=== PATIENT | male | born 1940 | race Caucasian/White ===

== ENCOUNTER 2020-04-23 10:06 | Emergency (ER) | payer MEDICARE, SELFPAY ==
[2020-04-23 10:24] VITALS: BP 142/64; PULSE 80; RESP 16; TEMP 36.9; O2SAT 97; BMI 29.3
--- NOTE | 2020-04-23 10:33 | DI.RAD.S_ITS ---
PROCEDURE: XR TOE LT MIN 2V INDICATIONS: sent for osteomyelitis of toe TECHNIQUE: 3 views of the left 2nd toe(s) acquired. COMPARISON: None. FINDINGS: Bones: Soft tissue swelling of the left 2nd toe without underlying osseous destruction or cortical erosions. No acute fractures or dislocations. No suspicious bony lesions. Soft tissues: No suspicious soft tissue densities. No radiopaque soft tissue densities. IMPRESSION: Soft tissue swelling of the left 2nd toe without underlying osseous erosions or cortical destruction. No radiographic findings of osteomyelitis. Dictated by: Angelo Skelton M.D. on 04/23/2020 at 10:55 Approved by: Angelo Skelton M.D. on 04/23/2020 at 10:57
--- NOTE | 2020-04-23 10:36 | ED_ITS ---
HPI - Extremity Injury (Lower) General Chief Complaint: Extremity Injury, Lower Stated Complaint: OSTEOMYELITIS IN 3RD TOE ON LEFT FOOT Time Seen by Provider: 04/23/20 10:15 Source: patient and family Mode of arrival: Ambulatory Limitations: no limitations History of Present Illness HPI Narrative: 80-year-old male nonsmoker with history of diabetes presents with his at the request of his primary care provider for the presumed diagnosis of osteomyelitis of his 2nd toe on his left foot. He had been seen by his provider and after performing exam and x-ray there was suggestion that there was an old fracture and suspicion of osteomyelitis based on exam and x-ray. The patient states that he has had a black toenail since the initial injury. He states there was no break in the skin at any point and no systemic findings such as fever, chills nor nausea or vomiting. He has no pain whatsoever, no swelling, no redness, red streaks or other classic findings. There is no skin breakdown or ulceration noted. Other symptoms: none Review of Systems Constitutional Constitutional: Denies chills, Denies fatigue, Denies fever(s), Denies frequent falls, Denies lethargy and Denies weakness Eyes Eyes: Denies change in vision, Denies eye discharge, Denies irritation and Denies loss of vision ENT Ears, Nose, Mouth, and Throat: Denies change in voice, Denies dizziness, Denies neck pain, Denies sore throat and Denies throat swelling Cardiovascular Cardiovascular: Denies chest pain, Denies irregular heart rhythm, Denies l ightheadedness, Denies palpitations, Denies dyspnea, Denies dyspnea on exertion and Denies orthopnea Respiratory Respiratory: Denies cough, Denies dyspnea, Denies dyspnea on exertion and Denies wheezing Gastrointestinal Gastrointestinal: Denies abdominal pain, Denies change in bowel habits, Denies diarrhea, Denies nausea and Denies vomiting Musculoskeletal Musculoskeletal: Denies deformity, Denies arthralgias, Denies joint swelling, Denies neck pain and Denies numbness Integumentary/Breasts Skin/Breast: Denies pruritus, Denies erythema, Denies rash, Denies skin pain, Denies skin swelling, Denies skin ulcer, Denies sores and Denies wounds Neurologic Neurologic: Denies behavioral changes, Denies confusion, Denies dizziness, Denies frequent falls, Denies loss of vision, Denies numbness and Denies weakness Psychiatric Psychiatric: Denies anxiety, Denies behavioral changes, Denies confusion, Denies depression, Denies homicidal ideation and Denies suicidal ideation Endocrine Endocrine: Denies fatigue, Denies flushing and Denies palpitations Hematologic/Lymphatic Hematologic/Lymphatic: Denies easy bruising Allergic/Immunologic Allergic/Immunologic: Denies urticaria, Denies throat swelling and Denies wheezing Patient History Social History Smoking Status: Never smoker Smoking Status: Never smoker Substance Use Type: does not use Exam Narrative Exam Narrative: GEN: AOx3 and in mild distress EYES: Pupils are equal, round, and reactive to light and accommodation. Extraoccular muscles are intact bilaterally. There is no subconjunctival hemorrhage or exudate. CHEST: Lungs are clear to auscultation bilaterally and free of wheezes, rales, or rhonchi. Heart rate is regular rhythm, there are no murmurs, clicks, rubs, or gallops. There is no chest wall tenderness. ABD: Abdomen is soft and nontender. There is no guarding or rebound. Bowel sounds are normal in all 4 quadrants. There is no mass or organomegaly. EXT: Full painless ROM of all extremities with no loss of sensation or strength. 2nd toe left foot with aging subungual hematoma. No pain, swelling, redness, skin breakdown, ulcer or other SKIN: Warm, pink, and dry. No erythema or rash Initial Vital Signs Initial Vital Signs: Vital Signs Temperature 98.4 F 04/23/20 10:24 Pulse Rate 80 04/23/20 10:24 Respiratory Rate 16 04/23/20 10:24 Blood Pressure 142/64 H 04/23/20 10:24 Pulse Oximetry 97 04/23/20 10:24 Course Orders Ordered: ED Orders 04/23/20 10:33 XR toe LT min 2V Stat 04/23/20 10:58 Basic Metabolic Panel Stat C-Reactive Protein Quant Stat Complete Blood Count AUTO DIFF Stat Erythrocyte Sedimentation Rate Stat Vital Signs Vital signs: Vital Signs - 8 hr 04/23/20 10:24 Temperature 98.4 F Pulse Rate 80 Respiratory Rate 16 Blood Pressure 142/64 H Pulse Oximetry 97 MDM - Extremity Injury (Lower) Lab Data Result diagrams: 04/23/20 10:58 04/23/20 10:58 Labs: Lab Results 04/23/20 04/23/20 Range/Units 10:58 10:58 WBC 4.6 (4.5-11.0) X10^3/uL RBC 3.78 L (4.5-5.9) X10^6/uL Hgb 10.8 L (13.5-17.5) g/dL Hct 32.5 L (41-53) % MCV 86.1 (80-100) fL MCH 28.7 (26-34) PG MCHC 33.3 (30-36) % RDW 15.2 H (11.6-14.8) % Plt Count 181 (150-400) X10^3/uL Neut % (Auto) 76.4 H (50-75) % Lymph % (Auto) 10.6 L (25-40) % [place] % (Auto) 10.3 (3-14) % Eos % (Auto) 2.4 (2-4) % Baso % (Auto) 0.3 (0-2) % Neut # (Auto) 3500 (8111-0165) /uL Lymph # (Auto) 500 L (4007-4057) /uL [place] # (Auto) 500 (0-900) /uL Eos # (Auto) 100 (0-450) /uL Baso # (Auto) 0 (0-100) /uL ESR 32 H (0-15) MM/HR Sodium 138 (137-145) mmol/L Potassium 4.3 (3.4-5.1) mmol/L Chloride 109 H (98-107) mmol/L Carbon Dioxide 24 (22-32) mmol/L BUN 34 H (9-20) mg/dL Creatinine 1.71 H (0.66-1.25) mg/dL Estimated GFR 38.9 L (>60) mL/min BUN/Creatinine Ratio 19.9 (6-22) Glucose 176 H (80-110) mg/dL Calcium 8.9 (8.4-10.2) mg/dL C-Reactive Protein 1.6 H (<1.0) mg/dL Imaging Data Extremity x-ray #1: Radiologist's Impression: [address] [id number] ReportSigned Patient: Ravin Saab [facility]#: [id number]: 2Acct:[id number]/Sex: 80 / MDate of Service: 04/23/20Loc: EDAccession Number: [id number] Procedure: XR toe LT min 2V Ordering Provider: Kranthi Landin D.O. PROCEDURE: XR TOE LT MIN 2V INDICATIONS: sent for osteomyelitis of toe TECHNIQUE: 3 views of the left 2nd toe(s) acquired. COMPARISON: None. FINDINGS: Bones: Soft tissue swelling of the left 2nd toe without underlying osseous destruction or cortical erosions. No acute fractures or dislocations. No suspicious bony lesions. Soft tissues: No suspicious soft tissue densities. No radiopaque soft tissue densities. IMPRESSION: Soft tissue swelling of the left 2nd toe without underlying osseous erosions or cortical destruction. No radiographic findings of osteomyelitis. Dictated by: Angelo Skelton M.D. on 04/23/2020 at 10:55 Approved by: Angelo Skelton M.D. on 04/23/2020 at 10:57 [facility] Narrative Medical decision making narrative: Patient sent for concern of osteomyelitis of 2nd toe left foot. Exam is very reassuring, no swelling, redness, pain, ulceration, drainage. Only exam abnormality is subungual hematoma. No significant findings on xray. Inflammatory markers slightly elevated on labs, however, this is non-specific and currently the clinical picture is not consistent with osteomyelitis. Patient and given return precautions and have had their questions answered to their apparent satisfaction. Discharge Plan Departure Patient Disposition: Home Clinical Impression: Subungual hematoma of left foot Qualifiers: Encounter type: initial encounter Qualified Code(s): S90.222A - Contusion of left lesser toe(s) with damage to nail, initial encounter Instructions: DI for Subungual Hematoma Activity Restrictions/Additional Instructions: *You have been diagnosed with [subungual hematoma of 2nd toe on left foot. Physical exam and imaging are not consistent with osteomyelitis. You do have a slight elevation in your markers of inflammation, which are very non-specific. *What to do: *Continue to take medications as directed *Follow up with your primary care provider in 2-3 days, call for an appointment. Let them know you were seen in the Emergency Department and that we ask that you be seen in follow up *Return to ER if you should have any new, worsening or concerning symptoms Referrals: Derick Gonzales MD [Primary Care Provider] -
[2020-04-23 11:10] LABS: Add Manual Diff / Slide Review NO; Basophils Absolute Auto 0 /uL (0-100); Basophils Percent Auto 0.3 % (0-2); Eosinophils Absolute Auto 100 /uL (0-450); Eosinophils Percent Auto 2.4 % (2-4); Hematocrit 32.5 % (41-53); Hemoglobin 10.8 g/dL (13.5-17.5); Lymphocytes Absolute Auto 500 /uL (1100-4500); Lymphocytes Percent Auto 10.6 % (25-40); Mean Corpuscular HGB Conc 33.3 % (30-36); Mean Corpuscular Hemoglobin 28.7 PG (26-34); Mean Corpuscular Volume 86.1 fL (80-100); Monocytes Absolute Auto 500 /uL (0-900); Monocytes Percent Auto 10.3 % (3-14); Neutrophils Absolute Auto 3500 /uL (1500-7000); Neutrophils Percent Auto 76.4 % (50-75); Platelet Count 181 X10^3/uL (150-400); Red Blood Cell Count 3.78 X10^6/uL (4.5-5.9); Red Cell Distribution Width 15.2 % (11.6-14.8); White Blood Cell Count 4.6 X10^3/uL (4.5-11.0)
--- NOTE | 2020-04-23 11:14 | PC.NURSE ---
Pt reports left 2nd toe has been dark colored beneath the toenail for 2 months. Had x ray of same 2 months ago, then a repeat x ray 4 days ago. The second x ray revealed a fracture. PA on [facility] recommended Pt come to ER for possible osteomyelitis. Pt denies pain in that toe, states he still has feeling in it.
[2020-04-23 11:24] LABS: BUN Creatinine Ratio 19.9 (6-22); Blood Urea Nitrogen 34 mg/dL (9-20); C-Reactive Protein Quant 1.6 mg/dL (<1.0); Calcium 8.9 mg/dL (8.4-10.2); Carbon Dioxide 24 mmol/L (22-32); Chloride 109 mmol/L (98-107); Estimated Glomerular Filt Rate 38.9 mL/min (>60); Glucose 176 mg/dL (80-110); HEMOLYSIS < 15 (0-50); Potassium 4.3 mmol/L (3.4-5.1); Sodium 138 mmol/L (137-145)
[2020-04-23 12:08] LABS: Erythrocyte Sedimentation Rate 32 MM/HR (0-15)
== END 2020-04-23 11:54 | disposition home or self-care (01) ==
PROVIDERS: Emergency Provider Emergency Medicine; Family Provider Family Medicine; PCP Family Medicine
DX: S90.222A Contusion of left lesser toe(s) with damage to nail, initial encounter (principal)
CPT/HCPCS: 36415; 73660; 80048; 85025; 85651; 86140; 99281; 99284

== ENCOUNTER → 2021-11-07 11:57 | Outpatient (CLI) | payer MEDICARE, SELFPAY ==
[2021-11-07 19:28] LABS: Add Manual Diff / Slide Review NO; Basophils Absolute Auto 0 /uL (0-100); Basophils Percent Auto 0.9 % (0-2); Eosinophils Absolute Auto 200 /uL (0-450); Eosinophils Percent Auto 4.5 % (2-4); Hematocrit 38.2 % (41-53); Hemoglobin 12.8 g/dL (13.5-17.5); Lymphocytes Absolute Auto 600 /uL (1100-4500); Lymphocytes Percent Auto 13.4 % (25-40); Mean Corpuscular HGB Conc 33.5 % (30-36); Mean Corpuscular Hemoglobin 29.6 PG (26-34); Mean Corpuscular Volume 88.4 fL (80-100); Monocytes Absolute Auto 400 /uL (0-900); Monocytes Percent Auto 9.4 % (3-14); Neutrophils Absolute Auto 3200 /uL (1500-7000); Neutrophils Percent Auto 71.8 % (50-75); Platelet Count 170 X10^3/uL (150-400); Red Blood Cell Count 4.32 X10^6/uL (4.5-5.9); Red Cell Distribution Width 14.5 % (11.6-14.8); White Blood Cell Count 4.5 X10^3/uL (4.5-11.0)
[2021-11-07 20:02] LABS: Alanine Aminotransferase 17 IU/L (<50); Albumin 3.9 g/dL (3.5-5.0); Albumin Globulin Ratio 1.4 (1.0-2.8); Alkaline Phosphatase 87 U/L (38-126); Aspartate Aminotransferase 26 IU/L (17-59); BUN Creatinine Ratio 16.1 (6-22); Bilirubin Total 0.9 mg/dL (0.2-1.3); Blood Urea Nitrogen 33 mg/dL (9-20); Calcium 8.8 mg/dL (8.4-10.2); Carbon Dioxide 23 mmol/L (22-32); Chloride 105 mmol/L (98-107); Cholesterol 181 mg/dL (140-199); Estimated Glomerular Filt Rate 32 mL/min (>60); Globulin 2.7 g/dL (1.7-4.1); Glucose 187 mg/dL (80-110); HDL Cholesterol 55 mg/dL (40-60); HEMOLYSIS 16 (0-50); LDL Cholesterol Calculated 102 mg/dL (<100); Potassium 4.6 mmol/L (3.4-5.1); Sodium 137 mmol/L (137-145); Total Protein 6.6 g/dL (6.3-8.2); Triglycerides 119 mg/dL (35-150)
[2021-11-07 20:03] LABS: Hemoglobin A1C% w Est Avg Glu 7.4 % (4.0-6.0)
[2021-11-07 20:08] LABS: Creatinine Urine Random 101.3 mg/dL
[2021-11-07 20:09] LABS: Microalbumi Creatinin Ratio Ur 67.1 ug/mg CR (<30); Microalbumin Urine Random 6.8 mg/dL (0-1.6)
[2021-11-07 20:36] LABS: TSH w/ Reflex to FT4 1.71 uIU/mL (0.47-4.68)
== END ==
PROVIDERS: Family Provider Family Medicine; PCP Family Medicine; Visit Provider Physician Assistant Medical
DX: R51.9 Headache, unspecified (principal); S80.11XS Contusion of right lower leg, sequela; W19.XXXA Unspecified fall, initial encounter
CPT/HCPCS: 80053; 80061; 82043; 82570; 83036; 84443; 85025

== ENCOUNTER → 2022-02-08 10:24 | Outpatient (CLI) | payer MEDICARE, SELFPAY | PROVIDERS: Family Provider Family Medicine; PCP Physician Assistant Medical; Visit Provider Physician Assistant Medical | DX: N40.1 Benign prostatic hyperplasia with lower urinary tract symptoms (principal); R39.11 Hesitancy of micturition | CPT/HCPCS: 87086 ==

== ENCOUNTER → 2022-11-14 09:22 | Outpatient (CLI) | payer MEDICARE, SELFPAY ==
[2022-11-14 21:08] LABS: Add Manual Diff / Slide Review NO; Basophils Absolute Auto 0 /uL (0-100); Basophils Percent Auto 1.1 % (0-2); Eosinophils Absolute Auto 200 /uL (0-450); Eosinophils Percent Auto 5.1 % (2-4); Hematocrit 39.9 % (41-53); Hemoglobin 13.6 g/dL (13.5-17.5); Lymphocytes Absolute Auto 500 /uL (1100-4500); Lymphocytes Percent Auto 12.8 % (25-40); Mean Corpuscular Volume 88.2 fL (80-100); Monocytes Absolute Auto 500 /uL (0-900); Monocytes Percent Auto 11.5 % (3-14); Neutrophils Absolute Auto 2800 /uL (1500-7000); Neutrophils Percent Auto 69.5 % (50-75); Platelet Count 138 X10^3/uL (150-400); Red Blood Cell Count 4.53 X10^6/uL (4.5-5.9); Red Cell Distribution Width 15.1 % (11.6-14.8)
[2022-11-14 21:15] LABS: Creatinine Urine Random 80.4 mg/dL
[2022-11-14 21:24] LABS: Microalbumi Creatinin Ratio Ur 34.8 ug/mg CR (<30); Microalbumin Urine Random 2.8 mg/dL (0-1.6)
[2022-11-14 21:48] LABS: Alanine Aminotransferase 21 IU/L (<50); Albumin 3.9 g/dL (3.5-5.0); Albumin Globulin Ratio 1.4 (1.0-2.8); Alkaline Phosphatase 73 U/L (38-126); Aspartate Aminotransferase 29 IU/L (17-59); BUN Creatinine Ratio 17.4 (6-22); Bilirubin Total 0.8 mg/dL (0.2-1.3); Blood Urea Nitrogen 34 mg/dL (9-20); Calcium 8.8 mg/dL (8.4-10.2); Carbon Dioxide 26 mmol/L (22-32); Chloride 105 mmol/L (98-107); Cholesterol 210 mg/dL (140-199); Estimated Glomerular Filt Rate 34 mL/min (>60); Globulin 2.8 g/dL (1.7-4.1); Glucose 114 mg/dL (80-110); HDL Cholesterol 59 mg/dL (40-60); HEMOLYSIS < 15 (0-50); LDL Cholesterol Calculated 129 mg/dL (<100); Potassium 4.6 mmol/L (3.4-5.1); Sodium 137 mmol/L (137-145); Total Protein 6.7 g/dL (6.3-8.2); Triglycerides 112 mg/dL (35-150)
[2022-11-14 22:14] LABS: TSH w/ Reflex to FT4 2.34 uIU/mL (0.47-4.68)
[2022-11-15 05:30] LABS: Hemoglobin A1C% w Est Avg Glu 6.7 % (4.0-6.0)
== END ==
PROVIDERS: Family Provider Family Medicine; PCP Physician Assistant Medical; Visit Provider Physician Assistant Medical
DX: E11.65 Type 2 diabetes mellitus with hyperglycemia (principal); N20.0 Calculus of kidney; N40.1 Benign prostatic hyperplasia with lower urinary tract symptoms; R39.11 Hesitancy of micturition; R94.4 Abnormal results of kidney function studies
CPT/HCPCS: 80053; 80061; 82043; 82570; 83036; 84443; 85025

== ENCOUNTER → 2023-02-17 10:24 | Outpatient (CLI) | payer MEDICARE, SELFPAY ==
[2023-02-17 19:49] LABS: Hemoglobin A1C% w Est Avg Glu 6.9 % (4.0-6.0)
[2023-02-17 19:59] LABS: Alanine Aminotransferase 20 IU/L (<50); Albumin Globulin Ratio 1.4 (1.0-2.8); Alkaline Phosphatase 70 U/L (38-126); Aspartate Aminotransferase 27 IU/L (17-59); BUN Creatinine Ratio 16.6 (6-22); Bilirubin Total 0.9 mg/dL (0.2-1.3); Blood Urea Nitrogen 28 mg/dL (9-20); Calcium 9.7 mg/dL (8.4-10.2); Carbon Dioxide 25 mmol/L (22-32); Chloride 103 mmol/L (98-107); Cholesterol 215 mg/dL (140-199); Estimated Glomerular Filt Rate 40 mL/min (>60); Globulin 2.8 g/dL (1.7-4.1); Glucose 120 mg/dL (80-110); HDL Cholesterol 66 mg/dL (40-60); HEMOLYSIS < 15 (0-50); LDL Cholesterol Calculated 127 mg/dL (<100); Potassium 4.7 mmol/L (3.4-5.1); Sodium 137 mmol/L (137-145); Total Protein 6.8 g/dL (6.3-8.2); Triglycerides 112 mg/dL (35-150)
[2023-02-18 14:08] LABS: Microalbumin Urine Random 2.6 mg/dL (0-1.6)
[2023-02-18 14:28] LABS: Creatinine Urine Random 45.9 mg/dL; Microalbumi Creatinin Ratio Ur 56.6 ug/mg CR (<30)
== END ==
PROVIDERS: Family Provider Family Medicine; PCP Physician Assistant Medical; Visit Provider Physician Assistant Medical
DX: N18.30 Chronic kidney disease, stage 3 unspecified (principal); E11.65 Type 2 diabetes mellitus with hyperglycemia; E78.00 Pure hypercholesterolemia, unspecified
CPT/HCPCS: 80053; 80061; 82043; 82570; 83036

== ENCOUNTER → 2023-04-02 11:17 | Outpatient (CLI) | payer MEDICARE, SELFPAY ==
[2023-04-02 19:25] LABS: Alanine Aminotransferase 20 IU/L (<50); Albumin 3.9 g/dL (3.5-5.0); Albumin Globulin Ratio 1.4 (1.0-2.8); Alkaline Phosphatase 72 U/L (38-126); Aspartate Aminotransferase 30 IU/L (17-59); BUN Creatinine Ratio 13.6 (6-22); Bilirubin Total 0.9 mg/dL (0.2-1.3); Blood Urea Nitrogen 23 mg/dL (9-20); Calcium 9.3 mg/dL (8.4-10.2); Carbon Dioxide 24 mmol/L (22-32); Chloride 103 mmol/L (98-107); Estimated Glomerular Filt Rate 40 mL/min (>60); Globulin 2.7 g/dL (1.7-4.1); Glucose 164 mg/dL (80-110); HEMOLYSIS < 15 (0-50); Potassium 4.3 mmol/L (3.4-5.1); Sodium 137 mmol/L (137-145); Total Protein 6.6 g/dL (6.3-8.2)
== END ==
PROVIDERS: Family Provider Family Medicine; PCP Physician Assistant Medical; Visit Provider Physician Assistant Medical
DX: N18.32 Chronic kidney disease, stage 3b (principal); E11.65 Type 2 diabetes mellitus with hyperglycemia
CPT/HCPCS: 80053

== ENCOUNTER → 2023-05-14 09:17 | Outpatient (CLI) | payer MEDICARE, SELFPAY ==
[2023-05-14 19:15] LABS: Add Manual Diff / Slide Review NO; Basophils Absolute Auto 0 /uL (0-100); Basophils Percent Auto 0.8 % (0-2); Eosinophils Absolute Auto 200 /uL (0-450); Eosinophils Percent Auto 3.3 % (2-4); Hematocrit 45.5 % (41-53); Hemoglobin 15.3 g/dL (13.5-17.5); Lymphocytes Absolute Auto 700 /uL (1100-4500); Lymphocytes Percent Auto 14.8 % (25-40); Mean Corpuscular HGB Conc 33.7 % (30-36); Mean Corpuscular Hemoglobin 30.4 PG (26-34); Mean Corpuscular Volume 90.3 fL (80-100); Monocytes Absolute Auto 400 /uL (0-900); Monocytes Percent Auto 8.6 % (3-14); Neutrophils Absolute Auto 3300 /uL (1500-7000); Neutrophils Percent Auto 72.5 % (50-75); Platelet Count 162 X10^3/uL (150-400); Red Blood Cell Count 5.05 X10^6/uL (4.5-5.9); Red Cell Distribution Width 14.4 % (11.6-14.8); White Blood Cell Count 4.5 X10^3/uL (4.5-11.0)
[2023-05-14 19:43] LABS: Alanine Aminotransferase 31 IU/L (<50); Albumin 4.4 g/dL (3.5-5.0); Albumin Globulin Ratio 1.5 (1.0-2.8); Alkaline Phosphatase 86 U/L (38-126); Aspartate Aminotransferase 39 IU/L (17-59); BUN Creatinine Ratio 16.4 (6-22); Blood Urea Nitrogen 29 mg/dL (9-20); Calcium 9.8 mg/dL (8.4-10.2); Carbon Dioxide 26 mmol/L (22-32); Chloride 105 mmol/L (98-107); Cholesterol 201 mg/dL (140-199); Estimated Glomerular Filt Rate 38 mL/min (>60); Globulin 2.9 g/dL (1.7-4.1); Glucose 133 mg/dL (80-110); HDL Cholesterol 76 mg/dL (40-60); HEMOLYSIS < 15 (0-50); LDL Cholesterol Calculated 101 mg/dL (<100); Sodium 138 mmol/L (137-145); Total Protein 7.3 g/dL (6.3-8.2); Triglycerides 121 mg/dL (35-150)
[2023-05-14 20:15] LABS: TSH w/ Reflex to FT4 2.08 uIU/mL (0.47-4.68)
== END ==
PROVIDERS: Family Provider Family Medicine; PCP Physician Assistant Medical; Visit Provider Physician Assistant Medical
DX: N18.30 Chronic kidney disease, stage 3 unspecified (principal); E11.9 Type 2 diabetes mellitus without complications
CPT/HCPCS: 80053; 80061; 84443; 85025

== ENCOUNTER → 2023-06-26 11:56 | Outpatient (CLI) | payer MEDICARE, SELFPAY ==
[2023-06-26 19:16] LABS: Alanine Aminotransferase 28 IU/L (<50); Albumin 4.2 g/dL (3.5-5.0); Albumin Globulin Ratio 1.7 (1.0-2.8); Alkaline Phosphatase 90 U/L (38-126); Aspartate Aminotransferase 35 IU/L (17-59); BUN Creatinine Ratio 13.8 (6-22); Bilirubin Total 0.9 mg/dL (0.2-1.3); Blood Urea Nitrogen 25 mg/dL (9-20); Calcium 9.2 mg/dL (8.4-10.2); Carbon Dioxide 27 mmol/L (22-32); Chloride 102 mmol/L (98-107); Cholesterol 184 mg/dL (140-199); Estimated Glomerular Filt Rate 37 mL/min (>60); Globulin 2.5 g/dL (1.7-4.1); Glucose 221 mg/dL (80-110); HDL Cholesterol 64 mg/dL (40-60); HEMOLYSIS < 15 (0-50); LDL Cholesterol Calculated 87 mg/dL (<100); Potassium 4.5 mmol/L (3.4-5.1); Sodium 135 mmol/L (137-145); Total Protein 6.7 g/dL (6.3-8.2); Triglycerides 165 mg/dL (35-150)
[2023-06-26 19:28] LABS: Hemoglobin A1C% w Est Avg Glu 7.2 % (4.0-6.0)
[2023-06-26 19:46] LABS: Prostate Specific Antigen Scrn 1.57 ng/mL (0.1-4.0)
== END ==
PROVIDERS: Family Provider Family Medicine; PCP Physician Assistant Medical; Visit Provider Physician Assistant Medical
DX: Z12.5 Encounter for screening for malignant neoplasm of prostate (principal); E78.00 Pure hypercholesterolemia, unspecified; N18.30 Chronic kidney disease, stage 3 unspecified; E11.65 Type 2 diabetes mellitus with hyperglycemia; J18.9 Pneumonia, unspecified organism; Z78.9 Other specified health status
CPT/HCPCS: 80053; 80061; 83036; 87086; G0103

== ENCOUNTER → 2023-07-10 10:43 | Outpatient (CLI) | payer MEDICARE, SELFPAY ==
[2023-07-10 20:02] LABS: Microalbumi Creatinin Ratio Ur 25.3 ug/mg CR (<30); Microalbumin Urine Random 1.8 mg/dL (0-1.6)
== END ==
PROVIDERS: Family Provider Family Medicine; PCP Physician Assistant Medical; Visit Provider Physician Assistant Medical
DX: E78.00 Pure hypercholesterolemia, unspecified (principal); Z78.9 Other specified health status; N18.30 Chronic kidney disease, stage 3 unspecified; E11.65 Type 2 diabetes mellitus with hyperglycemia
CPT/HCPCS: 82043; 82570

== ENCOUNTER → 2023-08-20 09:48 | Outpatient (CLI) | payer MEDICARE, SELFPAY ==
[2023-08-20 19:35] LABS: Add Manual Diff / Slide Review NO; Basophils Absolute Auto 0 /uL (0-100); Basophils Percent Auto 0.6 % (0-2); Eosinophils Absolute Auto 100 /uL (0-450); Eosinophils Percent Auto 2.6 % (2-4); Hematocrit 41.5 % (41-53); Hemoglobin 13.9 g/dL (13.5-17.5); Lymphocytes Absolute Auto 600 /uL (1100-4500); Mean Corpuscular HGB Conc 33.4 % (30-36); Mean Corpuscular Hemoglobin 30.6 PG (26-34); Mean Corpuscular Volume 91.5 fL (80-100); Monocytes Absolute Auto 500 /uL (0-900); Monocytes Percent Auto 9.7 % (3-14); Neutrophils Absolute Auto 3900 /uL (1500-7000); Neutrophils Percent Auto 75.1 % (50-75); Platelet Count 173 X10^3/uL (150-400); Red Blood Cell Count 4.53 X10^6/uL (4.5-5.9); Red Cell Distribution Width 14.4 % (11.6-14.8); White Blood Cell Count 5.1 X10^3/uL (4.5-11.0)
[2023-08-20 20:16] LABS: Alanine Aminotransferase 17 IU/L (<50); Albumin 3.9 g/dL (3.5-5.0); Albumin Globulin Ratio 1.6 (1.0-2.8); Alkaline Phosphatase 91 U/L (38-126); Aspartate Aminotransferase 24 IU/L (17-59); BUN Creatinine Ratio 15.6 (6-22); Bilirubin Total 0.8 mg/dL (0.2-1.3); Blood Urea Nitrogen 26 mg/dL (9-20); Calcium 9.4 mg/dL (8.4-10.2); Carbon Dioxide 27 mmol/L (22-32); Chloride 109 mmol/L (98-107); Cholesterol 201 mg/dL (140-199); Estimated Glomerular Filt Rate 41 mL/min (>60); Globulin 2.5 g/dL (1.7-4.1); Glucose 129 mg/dL (80-110); HDL Cholesterol 67 mg/dL (40-60); HEMOLYSIS < 15 (0-50); LDL Cholesterol Calculated 115 mg/dL (<100); Potassium 4.7 mmol/L (3.4-5.1); Sodium 139 mmol/L (137-145); Total Protein 6.4 g/dL (6.3-8.2); Triglycerides 95 mg/dL (35-150)
[2023-08-20 20:35] LABS: TSH w/ Reflex to FT4 2.05 uIU/mL (0.47-4.68)
== END ==
PROVIDERS: Family Provider Family Medicine; PCP Physician Assistant Medical; Visit Provider Physician Assistant Medical
DX: E78.00 Pure hypercholesterolemia, unspecified (principal); N18.30 Chronic kidney disease, stage 3 unspecified; R53.83 Other fatigue; Z78.9 Other specified health status
CPT/HCPCS: 80053; 80061; 84443; 85025

== ENCOUNTER → 2023-09-04 09:36 | Outpatient (CLI) | payer MEDICARE, SELFPAY ==
[2023-09-04 19:54] LABS: Add Manual Diff / Slide Review NO; Basophils Absolute Auto 0 /uL (0-100); Basophils Percent Auto 0.6 % (0-2); Eosinophils Absolute Auto 100 /uL (0-450); Hematocrit 43.1 % (41-53); Hemoglobin 14.3 g/dL (13.5-17.5); Lymphocytes Absolute Auto 700 /uL (1100-4500); Mean Corpuscular HGB Conc 33.2 % (30-36); Mean Corpuscular Hemoglobin 30.2 PG (26-34); Monocytes Absolute Auto 600 /uL (0-900); Monocytes Percent Auto 10.2 % (3-14); Neutrophils Absolute Auto 4200 /uL (1500-7000); Neutrophils Percent Auto 75.2 % (50-75); Platelet Count 194 X10^3/uL (150-400); Red Blood Cell Count 4.74 X10^6/uL (4.5-5.9); Red Cell Distribution Width 14.3 % (11.6-14.8); White Blood Cell Count 5.6 X10^3/uL (4.5-11.0)
[2023-09-04 20:01] LABS: Alanine Aminotransferase 17 IU/L (<50); Albumin 4.1 g/dL (3.5-5.0); Albumin Globulin Ratio 1.5 (1.0-2.8); Alkaline Phosphatase 84 U/L (38-126); Amylase 60 U/L (30-110); Aspartate Aminotransferase 28 IU/L (17-59); BUN Creatinine Ratio 16.8 (6-22); Bilirubin Total 1.2 mg/dL (0.2-1.3); Blood Urea Nitrogen 31 mg/dL (9-20); Calcium 9.9 mg/dL (8.4-10.2); Carbon Dioxide 27 mmol/L (22-32); Chloride 105 mmol/L (98-107); Estimated Glomerular Filt Rate 36 mL/min (>60); Globulin 2.8 g/dL (1.7-4.1); Glucose 113 mg/dL (80-110); HEMOLYSIS < 15 (0-50); Lipase 108 U/L (23-300); Potassium 4.4 mmol/L (3.4-5.1); Sodium 136 mmol/L (137-145); Total Protein 6.9 g/dL (6.3-8.2)
== END ==
PROVIDERS: Family Provider Family Medicine; PCP Physician Assistant Medical; Visit Provider Physician Assistant Medical
DX: R19.7 Diarrhea, unspecified (principal); R53.83 Other fatigue; C19 Malignant neoplasm of rectosigmoid junction
CPT/HCPCS: 80053; 82150; 83690; 84443; 85025

== ENCOUNTER → 2023-10-21 14:39 | Outpatient (CLI) | payer MEDICARE, SELFPAY ==
[2023-10-24 13:15] LABS: Fecal Immunochemical Test Negative (Negative)
== END ==
LOC: LAB 12-01 14:39
PROVIDERS: Family Provider Family Medicine; PCP Physician Assistant Medical; Referring Provider Physician Assistant Medical; Visit Provider Physician Assistant Medical
DX: R19.7 Diarrhea, unspecified (principal); R53.83 Other fatigue; C19 Malignant neoplasm of rectosigmoid junction
CPT/HCPCS: 82274

== ENCOUNTER 2023-11-07 11:21 | Emergency (ER) | payer MEDICARE, SELFPAY ==
[2023-11-07 11:41] VITALS: BP 145/71; PULSE 91; RESP 15; TEMP 36.5; O2SAT 93; BMI 29.5
--- NOTE | 2023-11-07 11:57 | ED_ITS ---
HPI - Recheck/Abnormal Lab/Rx General Chief Complaint: Recheck/Abnormal Lab/Rx Stated Complaint: sent by pcp, chest pain, needs lung biopsy Time Seen by Provider: 11/07/23 11:49 Mode of arrival: Ambulatory History of Present Illness HPI narrative: 83-year-old male presents for right-sided chest pain. Patient states that 1 week ago he went to the [facility] for this pain and was told that he had a pleural effusion and nodules concerning for cancer. Patient states that he was referred to Oncology but his appointment is not for several months and he is still in pain. He states that he was told to come to the emergency department for help with his pain control. Related Data Home Medications Medication Instructions Recorded Confirmed timolol maleate 0.5 % eye drops 1 drp EYE-BOTH DAILY 02/21/23 09/04/23 Previous Rx's Medication Instructions Recorded albuterol sulfate 90 mcg/actuation 2 puff inhalation Q6H PRN 01/13/23 aerosol inhaler bronchospasm #8.5 grams empagliflozin 25 mg tablet 25 mg PO DAILY #90 tabs 02/21/23 (Jardiance) fluticasone propionate 50 1 spray intranasal BID #16 grams 03/19/23 mcg/actuation nasal spray,suspension (Children's Flonase Allergy Relief) tamsulosin 0.4 mg capsule 0.4 mg PO DAILY #90 caps 05/16/23 ezetimibe 10 mg tablet (Zetia) 10 mg PO DAILY #90 tabs 06/16/23 albuterol sulfate 90 mcg/actuation 2 puff inhalation Q4-6H PRN 06/26/23 aerosol inhaler shortness of breath or wheezing #8.5 grams nirmatrelvir 150 mg-ritonavir 100 1 ea PO PER PKG DIR #20 ea 06/26/23 mg tablets in a dose pack (Paxlovid) loperamide 2 mg capsule (Imodium 2 mg PO Q4H PRN loose stool #30 09/04/23 A-D) caps hydrocodone 5 mg-acetaminophen 325 1 tab PO Q8H PRN pain #20 tabs 11/07/23 mg tablet Allergies Allergy/AdvReac Type Severity Reaction Status Date / Time atorvastatin AdvReac Intermediate Diarrhea Verified 11/07/23 11:41 pravastatin AdvReac Intermediate exhaustion Verified 11/07/23 11:41 Patient History Medical History (Updated 11/07/23 @ 12:39 by Karrie Amezquita MD) Other nail disorders Encounter for immunization Measles (~1947) Chicken pox (~1947) Diabetes mellitus (~1997) Colorectal cancer (~2020) Surgical History Anesthesia History of colectomy (~09/04/20) Family History Father Cancer Mother Cancer Grandfather Cancer Grandmother Cancer Grandfather No problems noted. Social History Smoking Status: Former smoker Smoking Status: Former smoker alcohol intake frequency: holidays/special occasions only Substance Use Type: does not use Exam Initial Vital Signs Initial Vital Signs: Vital Signs Temperature 97.7 F 11/07/23 11:41 Pulse Rate 91 H 11/07/23 11:41 Respiratory Rate 15 11/07/23 11:41 Blood Pressure 145/71 H 11/07/23 11:41 Pulse Oximetry 93 11/07/23 11:41 Oxygen Delivery Method Room Air 11/07/23 11:41 Const: Awake, alert, no acute distress, nontoxic appearing Cardiac: regular rate, regular rhythm RESP: unlabored, clear bilaterally, no wheezing Skin: Warm, Dry, intact, no rashes Neuro: AO x3, CN II-XII grossly intact, moves all extremities Course Orders Ordered: ED Orders 11/07/23 11:57 Chest [XR chest 2V] Stat Vital Signs Vital signs: Vital Signs - 8 hr 11/07/23 11:41 Temperature 97.7 F Pulse Rate 91 H Respiratory Rate 15 Blood Pressure 145/71 H Pulse Oximetry 93 Oxygen Delivery Method Room Air MDM - Recheck/Abnormal Lab/Rx MDM Narrative Medical decision making narrative: Patient presenting for persistent right-sided chest pain, concerned because he was told that he may possibly have lung cancer, but does not have any follow up scheduled with Oncology for several months. He states that he was also referred for a lung biopsy and drainage of pleural fluid, but does not know any details about these procedures or when they will be performed. Patient overall reports frustration with this process as he does not know where to go or who to speak to about his diagnosis. Unable to review imaging from [facility] ER. Hemodynamically stable. Chest x-ray shows that patient does have small right-sided pleural effusion, however volume not sufficient for ER drainage due to its small size. He was able to speak to our radiology department and patient was confirmed to have a referral in place, however iti still in the process of pending insurance and independent Radiology review for appropriateness. arch support technician state that they will reach out to schedulers to ensure that patient's case is of high priority. A different referral to a [facility] oncologist provided to see if a sooner appointment can be achieved. Pain medication sent to pharmacy of choice. Discharge Plan Departure Patient Disposition: Home Clinical Impression: Pleural effusion, Right-sided chest pain Instructions: DI for Chest Pain Activity Restrictions/Additional Instructions: I do see that you have a right-sided pleural effusion, however it was not large enough for me to safely drain here in the emergency department. The Radiology Department does have your information and once the claim is process through insurance they should contact you to schedule your biopsy. Pain medications have been sent to the [facility] in [place]. In addition, I am providing the number to a different oncologist through [facility], I can not guarantee that they will see you faster than your other referral, but it was not hurt to reach out to see if they have a sooner appointment. Prescriptions: New hydrocodone-acetaminophen 5-325 mg tablet 1 tab PO Q8H PRN (Reason: pain) Qty: 20 0RF No Action albuterol sulfate 90 mcg/actuation HFA aerosol inhaler 2 puff inhalation Q6H PRN (Reason: bronchospasm) Qty: 8.5 0RF tamsulosin 0.4 mg capsule 0.4 mg PO DAILY Qty: 90 3RF ezetimibe [Zetia] 10 mg tablet 10 mg PO DAILY Qty: 90 0RF loperamide [Imodium A-D] 2 mg capsule 2 mg PO Q4H PRN (Reason: loose stool) Qty: 30 0RF Rx Instructions: administer after each loose stool until symptoms controlled; do not exceed 8 mg per 24 hrs timolol maleate 0.5 % drops 1 drp EYE-BOTH DAILY Jardiance 25 mg tablet 25 mg PO DAILY Qty: 90 3RF fluticasone propionate [Children's Flonase Allergy Rlf] 50 mcg/actuation spray,suspension 1 spray intranasal BID Qty: 16 2RF Rx Instructions: administer into each nostril albuterol sulfate 90 mcg/actuation HFA aerosol inhaler 2 puff inhalation Q4-6H PRN (Reason: shortness of breath or wheezing) Qty: 8.5 3RF Paxlovid 150-100 mg tablets,dose pack 1 ea PO PER PKG DIR Qty: 20 0RF Rx Instructions: orally per package directions...needs to stop taking tamsulosin while taking this medication Referrals: Chelsea Morton PA-C [Primary Care Provider] - Peter Heart MD [Physician] - Stand Alone Forms: Patient Portal/API
--- NOTE | 2023-11-07 11:57 | DI.RAD.S_ITS ---
PROCEDURE: XR CHEST 2V INDICATIONS: R chest pain, reports pleural effusion TECHNIQUE: 2 views of the chest were acquired. COMPARISON: Outside Film, CT, CT KUB, 05/13/2022, 15:02. [facility]), CR, XR CHEST 2V, 06/26/2023, 11:57. FINDINGS: Surgical changes and devices: None. Lungs and pleura: There is a small right pleural effusion and right basilar atelectasis. There is a question of mild unilateral interstitial pulmonary edema in the right lung. Mediastinum: Mediastinal contours are normal. Heart size is normal. Bones and chest wall: No suspicious bony abnormalities. Soft tissues appear unremarkable. IMPRESSION: 1. Small right pleural effusion and right basilar atelectasis. 2. Question possible mild unilateral interstitial pulmonary edema of the right lung. Dictated by: Keenan Myers M.D. on 11/07/2023 at 12:52 Approved by: Keenan Myers M.D. on 11/07/2023 at 12:53
[2023-11-07 12:54] VITALS: BP 146/70; PULSE 90; RESP 16; O2SAT 93
== END 2023-11-07 12:54 | disposition home or self-care (01) ==
PROVIDERS: Emergency Provider Emergency Medicine; Family Provider Family Medicine; PCP Physician Assistant Medical
DX: J90 Pleural effusion, not elsewhere classified (principal); R07.9 Chest pain, unspecified
CPT/HCPCS: 71046; 99281; 99283